=== PATIENT | female | born 1965 | race Caucasian/White ===

== ENCOUNTER 2020-12-16 08:36 | Emergency (ER) | payer SELFPAY ==
[~2020-12-16 08:36] MED LIST: CEFTIN500 MG PO; NEURONTIN800 MG PO; XANAX1 MG PO
[2020-12-16 09:52] LABS: RED BLOOD COUNT 3.52 M/UL (4.00-5.10); WHITE BLOOD COUNT 8.7 K/UL (4.5-11.0)
[2020-12-16 10:12] LABS: BUN/CREATININE RATIO 25 (0-10)
[2020-12-16] MEDS ORDERED: CORTIZONE-1057 GM TP (11:08)
== END 2020-12-16 11:17 | disposition home or self-care (01) ==
LOC: ER1 08:36
PROVIDERS: Student in an Organized Health Care Education/Training Program
DX: L29.9 Pruritus, unspecified (principal); F17.210 Nicotine dependence, cigarettes, uncomplicated; Z86.19 Personal history of other infectious and parasitic diseases; Z90.710 Acquired absence of both cervix and uterus
CPT/HCPCS: 80053; 85025; 99283

== ENCOUNTER 2021-02-21 09:18 | Emergency (ER) | payer OTHER ==
[~2021-02-21 09:18] MED LIST changes: +CORTIZONE-1057 GM TP
[2021-02-21 11:27] LABS: HEMOGLOBIN 11.6 gm/dl (12.3-15.3); RED BLOOD COUNT 3.74 M/UL (4.00-5.10); WHITE BLOOD COUNT 5.9 K/UL (4.5-11.0)
[2021-02-21 11:55] LABS: BUN/CREATININE RATIO 29 (0-10)
[2021-02-21] MEDS ORDERED: SKLICE117 GM TP (12:08)
[2021-02-21] MEDS ORDERED: STROMECTOL3 MG PO (12:19)
== END 2021-02-21 12:23 | disposition home or self-care (01) ==
LOC: ER1 09:18
PROVIDERS: Physician Assistant
DX: R10.9 Unspecified abdominal pain (principal); Z90.710 Acquired absence of both cervix and uterus; Z90.89 Acquired absence of other organs; Z88.1 Allergy status to other antibiotic agents; Z79.899 Other long term (current) drug therapy; Z87.891 Personal history of nicotine dependence
CPT/HCPCS: 80053; 81001; 85025; 87086; 96372; 99284; J1885

== ENCOUNTER 2021-03-16 07:10 | Emergency (ER) | payer OTHER ==
[~2021-03-16 07:10] MED LIST changes: +SKLICE117 GM TP; +STROMECTOL3 MG PO
[2021-03-16 08:15] LABS: HEMOGLOBIN 12.6 gm/dl (12.3-15.3); RED BLOOD COUNT 3.99 M/UL (4.00-5.10); WHITE BLOOD COUNT 4.3 K/UL (4.5-11.0)
[2021-03-16 08:44] LABS: BUN/CREATININE RATIO 26 (0-10)
[2021-03-16] MEDS ORDERED: SALINE SENSITI360 ML EYEBOTH (12:43)
[2021-03-16] MEDS ORDERED: CORTISONE28 G2 TP (12:43)
== END 2021-03-16 12:57 | disposition home or self-care (01) ==
LOC: ER1 07:10
PROVIDERS: Emergency Medicine
DX: R07.9 Chest pain, unspecified (principal); R21 Rash and other nonspecific skin eruption; M25.512 Pain in left shoulder; Z85.51 Personal history of malignant neoplasm of bladder
CPT/HCPCS: 71045; 80053; 81001; 82550; 82553; 83690; 84484; 85025; 93005; 99285

== ENCOUNTER 2021-03-18 18:53 | Emergency (ER) | payer OTHER ==
[~2021-03-18 18:53] MED LIST changes: +CORTISONE28 G2 TP; +SALINE SENSITI360 ML EYEBOTH
[2021-03-18] MEDS ORDERED: NORFLEX 100 MG100 MG PO (19:21)
[2021-03-18] MEDS ORDERED: Voltaren Gel 1 % TOP (19:21)
[2021-03-19] MEDS ORDERED: ELIMITE 5% CREA60 GM TOP (01:38)
[2021-03-19] MEDS ORDERED: MOBIC15 MG PO (01:38)
[2021-03-19] MEDS ORDERED: STROMECTOL3 MG PO (01:51)
== END 2021-03-19 02:00 | disposition home or self-care (01) ==
LOC: ER1 18:53
DX: S30.0XXA Contusion of lower back and pelvis, initial encounter (principal); M16.11 Unilateral primary osteoarthritis, right hip; M25.551 Pain in right hip; B20 Human immunodeficiency virus [HIV] disease; F17.210 Nicotine dependence, cigarettes, uncomplicated; Z90.710 Acquired absence of both cervix and uterus; Z88.1 Allergy status to other antibiotic agents; W22.8XXA Striking against or struck by other objects, initial encounter
CPT/HCPCS: 72100; 72192; 72220; 73030; 73502; 99284

== ENCOUNTER 2021-04-08 20:30 | Emergency (ER) | payer OTHER ==
[~2021-04-08 20:30] MED LIST changes: +ELIMITE 5% CREA60 GM TOP; +MOBIC15 MG PO; +NORFLEX 100 MG100 MG PO; +Voltaren Gel 1 % TOP
[2021-04-08 21:24] LABS: RED BLOOD COUNT 3.79 M/UL (4.00-5.10); WHITE BLOOD COUNT 5.3 K/UL (4.5-11.0)
[2021-04-08 21:36] LABS: BUN/CREATININE RATIO 25 (0-10)
[2021-04-09] MEDS ORDERED: ZOFRAN ODT 4 MG4 MG PO (06:58)
[2021-04-09] MEDS ORDERED: IVERMECTIN3 MG PO (10:12)
[2021-04-09] MEDS ORDERED: ELIMITE 5% CREA60 GM TOP (10:12)
== END 2021-04-09 07:18 | disposition home or self-care (01) ==
LOC: ER1 20:30
PROVIDERS: Physician Assistant
DX: R11.2 Nausea with vomiting, unspecified (principal); Z79.1 Long term (current) use of non-steroidal anti-inflammatories (NSAID); F17.200 Nicotine dependence, unspecified, uncomplicated; Z79.899 Other long term (current) drug therapy
CPT/HCPCS: 80053; 81001; 82150; 83690; 85025; 99284

== ENCOUNTER 2021-04-09 09:22 | Emergency (ER) | payer OTHER ==
[~2021-04-09 09:22] MED LIST changes: +ZOFRAN ODT 4 MG4 MG PO
[2021-04-09] MEDS ORDERED: IVERMECTIN3 MG PO (10:12)
[2021-04-09] MEDS ORDERED: ELIMITE 5% CREA60 GM TOP (10:12)
== END 2021-04-09 10:53 | disposition home or self-care (01) ==
LOC: ER1 09:22
DX: B86 Scabies (principal); Z86.19 Personal history of other infectious and parasitic diseases; Z90.89 Acquired absence of other organs; Z90.710 Acquired absence of both cervix and uterus; F17.200 Nicotine dependence, unspecified, uncomplicated; Z79.899 Other long term (current) drug therapy
CPT/HCPCS: 99282

== ENCOUNTER 2021-05-13 16:38 | Emergency (ER) | payer OTHER ==
[~2021-05-13 16:38] MED LIST changes: +IVERMECTIN3 MG PO
[2021-05-13 18:53] LABS: HEMOGLOBIN 11.9 gm/dl (12.3-15.3); RED BLOOD COUNT 3.76 M/UL (4.00-5.10); WHITE BLOOD COUNT 4.9 K/UL (4.5-11.0)
[2021-05-13 19:18] LABS: BUN/CREATININE RATIO 32 (0-10)
[2021-05-13] MEDS ORDERED: BACTRIM DS TAB1 EACH PO (20:47)
== END 2021-05-13 21:00 | disposition home or self-care (01) ==
LOC: ER1 16:38
PROVIDERS: Physician Assistant Medical
DX: N39.0 Urinary tract infection, site not specified (principal); F17.200 Nicotine dependence, unspecified, uncomplicated; Z90.89 Acquired absence of other organs; Z90.710 Acquired absence of both cervix and uterus; Z88.1 Allergy status to other antibiotic agents
CPT/HCPCS: 80053; 81001; 85025; 99284

== ENCOUNTER 2021-05-31 00:26 | Emergency (ER) | payer OTHER ==
[~2021-05-31 00:26] MED LIST changes: +BACTRIM DS TAB1 EACH PO
[2021-05-31 02:29] LABS: HEMOGLOBIN 11.6 gm/dl (12.3-15.3); RED BLOOD COUNT 3.63 M/UL (4.00-5.10); WHITE BLOOD COUNT 4.3 K/UL (4.5-11.0)
[2021-05-31] MEDS ORDERED: ZOFRAN4 MG PO (04:49)
[2021-05-31] MEDS ORDERED: OMNICEF 300 MG300 MG PO (05:03)
== END 2021-05-31 05:30 | disposition home or self-care (01) ==
LOC: ER1 00:26
PROVIDERS: Physician Assistant Medical
DX: R10.30 Lower abdominal pain, unspecified (principal); R31.9 Hematuria, unspecified; R11.2 Nausea with vomiting, unspecified; F17.210 Nicotine dependence, cigarettes, uncomplicated; Z90.49 Acquired absence of other specified parts of digestive tract; Z90.710 Acquired absence of both cervix and uterus; Z79.899 Other long term (current) drug therapy; Z88.1 Allergy status to other antibiotic agents
CPT/HCPCS: 80053; 81001; 85025; 96372; 99284; J0696; J1885

== ENCOUNTER 2021-06-05 15:43 | Emergency (ER) | payer OTHER ==
[~2021-06-05 15:43] MED LIST changes: +OMNICEF 300 MG300 MG PO; +ZOFRAN4 MG PO
== END 2021-06-05 20:00 | disposition home or self-care (01) ==
LOC: ER1 15:43
DX: L29.9 Pruritus, unspecified (principal); F41.9 Anxiety disorder, unspecified; R30.0 Dysuria; F17.200 Nicotine dependence, unspecified, uncomplicated
CPT/HCPCS: 81001; 99283

== ENCOUNTER 2021-06-11 22:47 | Emergency (ER) | payer OTHER ==
[2021-06-12 00:15] LABS: HEMOGLOBIN 12.6 gm/dl (12.3-15.3); RED BLOOD COUNT 4.04 M/UL (4.00-5.10); WHITE BLOOD COUNT 3.6 K/UL (4.5-11.0)
[2021-06-12] MEDS ORDERED: ZOFRAN ODT 4 MG4 MG PO (04:10)
== END 2021-06-12 05:10 | disposition home or self-care (01) ==
LOC: ER1 22:47
PROVIDERS: Physician Assistant
DX: R31.9 Hematuria, unspecified (principal); R30.0 Dysuria; R10.9 Unspecified abdominal pain; F17.210 Nicotine dependence, cigarettes, uncomplicated; Z88.1 Allergy status to other antibiotic agents
CPT/HCPCS: 80053; 81001; 85025; 87086; 96372; 99284; J0696; Q9967

== ENCOUNTER 2021-10-12 22:01 | Emergency (ER) | payer OTHER ==
[2021-10-13] MEDS ORDERED: OMNICEF 300 MG300 MG PO (03:14)
[2021-10-13 05:39] LABS: HEMOGLOBIN 11.3 gm/dl (12.3-15.3); RED BLOOD COUNT 3.5 M/UL (4.00-5.10); WHITE BLOOD COUNT 6.3 K/UL (4.5-11.0)
[2021-10-13 09:01] LABS: BUN/CREATININE RATIO 40 (0-10)
[2021-10-13] MEDS ORDERED: IBUPROFEN600 MG PO (12:26)
== END 2021-10-13 03:26 | disposition home or self-care (01) ==
LOC: ER1 22:01
PROVIDERS: Physician Assistant
DX: N39.0 Urinary tract infection, site not specified (principal); K59.00 Constipation, unspecified; F17.200 Nicotine dependence, unspecified, uncomplicated; Z88.1 Allergy status to other antibiotic agents; Z87.442 Personal history of urinary calculi
CPT/HCPCS: 80053; 81001; 83605; 83690; 85025; 87077; 87086; 87186; 99284

== ENCOUNTER 2021-10-13 11:45 | Emergency (ER) | payer OTHER ==
[2021-10-13] MEDS ORDERED: IBUPROFEN600 MG PO (12:26)
== END 2021-10-13 12:58 | disposition home or self-care (01) ==
LOC: ER1 11:45
DX: N39.0 Urinary tract infection, site not specified (principal); F17.200 Nicotine dependence, unspecified, uncomplicated; Z88.8 Allergy status to other drugs, medicaments and biological substances; Z90.710 Acquired absence of both cervix and uterus
CPT/HCPCS: 96372; 99283; J0696

== ENCOUNTER 2021-11-15 18:54 | Emergency (ER) | payer OTHER ==
[~2021-11-15 18:54] MED LIST changes: +IBUPROFEN600 MG PO
[2021-11-15 21:18] LABS: HEMOGLOBIN 12.5 gm/dl (12.3-15.3); RED BLOOD COUNT 3.86 M/UL (4.00-5.10); WHITE BLOOD COUNT 5.8 K/UL (4.5-11.0)
[2021-11-15 21:46] LABS: BUN/CREATININE RATIO 28 (0-10)
[2021-11-15] MEDS ORDERED: FLOMAX 0.4 MG0.4 MG PO (22:02)
== END 2021-11-15 22:10 | disposition home or self-care (01) ==
LOC: ER1 18:54
PROVIDERS: Nurse Practitioner
DX: N20.0 Calculus of kidney (principal); Z90.710 Acquired absence of both cervix and uterus; Z87.442 Personal history of urinary calculi
CPT/HCPCS: 80053; 81001; 85025; 99284

== ENCOUNTER 2021-12-23 22:34 | Emergency (ER) | payer OTHER ==
[~2021-12-23 22:34] MED LIST changes: +FLOMAX 0.4 MG0.4 MG PO
[2021-12-24 02:41] LABS: HEMOGLOBIN 12.3 gm/dl (12.3-15.3); RED BLOOD COUNT 3.91 M/UL (4.00-5.10); WHITE BLOOD COUNT 4.5 K/UL (4.5-11.0)
[2021-12-24 03:38] LABS: ADENOVIRUS F 40/41 Not Detected (Negative); ASTROVIRUS Not Detected (Negative); CAMPYLOBACTER Not Detected (Negative); CRYPTOSPORIDIUM Not Detected (Negative); E.COLI 0157 Not Detected (Negative); ENTAMOEBA HISTOLYTICA Not Detected (Negative); ENTEROAGGREGATIVE E.COLI (EAEC Not Detected (Negative); ENTEROPATHOGENIC E.COLI (EPEC) Not Detected (Negative); ENTEROTOXIGENIC E.COLI (ETEC) Not Detected (Negative); GIARDIA LAMBLIA Not Detected (Negative); NOROVIRUS GI/GII Not Detected (Negative); PLESIOMONAS SHIGELLOIDES Not Detected (Negative); ROTOVIRUS A Not Detected (Negative); SALMONELLA Not Detected (Negative); SAPOVIRUS Not Detected (Negative); SHIG/ENTEROINVAS.ECOLI (EIEC) Not Detected (Negative); SHIGA-LIK TOX.PRO.E.COLI (STEC Not Detected (Negative); VIBRIO Not Detected (Negative); VIBRIO CHOLERAE Not Detected (Negative); YERSINIA ENTEROCOLITICA Not Detected (Negative)
[2021-12-24 05:36] LABS: BUN/CREATININE RATIO 36 (0-10)
[2021-12-24] MEDS ORDERED: OMNICEF 300 MG300 MG PO (06:01)
[2021-12-24] MEDS ORDERED: BENTYL 20MG TAB20 MG PO (06:01)
[2021-12-24] MEDS ORDERED: ZOFRAN ODT 4 MG4 MG PO (06:01)
[2021-12-24 10:14] LABS: CLOSTRIDIUM DIFFICILE TOX A/B DETECTED (Negative)
== END 2021-12-24 06:25 | disposition home or self-care (01) ==
LOC: ER1 22:34
PROVIDERS: Physician Assistant
DX: U07.1 COVID-19 (principal); F17.210 Nicotine dependence, cigarettes, uncomplicated; R10.84 Generalized abdominal pain; R11.2 Nausea with vomiting, unspecified; R19.7 Diarrhea, unspecified
CPT/HCPCS: 0240U; 80053; 81001; 82150; 82550; 82553; 83690; 84484; 85025; 85652; 86140; 87507; 99284

== ENCOUNTER 2022-04-23 16:41 | Emergency (ER) | payer OTHER ==
[~2022-04-23 16:41] MED LIST changes: +BENTYL 20MG TAB20 MG PO
[2022-04-23] MEDS ORDERED: TORADOL 10 MG T10 MG PO (18:47)
== END 2022-04-23 19:26 | disposition home or self-care (01) ==
LOC: ER1 16:41
DX: M16.11 Unilateral primary osteoarthritis, right hip (principal); M91.11 Juvenile osteochondrosis of head of femur [Legg-Calve-Perthes], right leg; F17.210 Nicotine dependence, cigarettes, uncomplicated
CPT/HCPCS: 73502; 96372; 99283; J1885

== ENCOUNTER 2022-05-12 20:01 | Emergency (ER) | payer OTHER ==
[~2022-05-12 20:01] MED LIST changes: +TORADOL 10 MG T10 MG PO
[2022-05-13 01:48] LABS: HEMOGLOBIN 13.6 gm/dl (12.3-15.3); RED BLOOD COUNT 4.27 M/UL (4.00-5.10); WHITE BLOOD COUNT 6.1 K/UL (4.5-11.0)
[2022-05-13 02:08] LABS: BUN/CREATININE RATIO 28 (0-10)
[2022-05-13] MEDS ORDERED: HYDROCODON-ACE1 EAC4 PO (04:26)
== END 2022-05-13 04:40 | disposition home or self-care (01) ==
LOC: ER1 20:01
PROVIDERS: Physician Assistant
DX: R10.9 Unspecified abdominal pain (principal); R31.9 Hematuria, unspecified; Z90.89 Acquired absence of other organs; Z90.710 Acquired absence of both cervix and uterus
CPT/HCPCS: 80053; 81001; 83690; 85025; 96374; 96375; 99284; J1885; J2270

== ENCOUNTER 2022-07-09 22:43 | Emergency (ER) | payer OTHER ==
[~2022-07-09 22:43] MED LIST changes: +HYDROCODON-ACE1 EAC4 PO
[2022-07-10 00:35] LABS: HEMOGLOBIN 13.1 gm/dl (12.3-15.3); RED BLOOD COUNT 4.13 M/UL (4.00-5.10); WHITE BLOOD COUNT 5.7 K/UL (4.5-11.0)
[2022-07-10 00:57] LABS: BUN/CREATININE RATIO 30 (0-10)
[2022-07-10] MEDS ORDERED: ZOFRAN 4 MG TAB4 MG PO (01:31)
[2022-07-10] MEDS ORDERED: HYDROCODON-ACE1 EAC4 PO (01:32)
== END 2022-07-10 02:04 | disposition home or self-care (01) ==
LOC: ER1 22:43
PROVIDERS: Emergency Medicine
DX: N23 Unspecified renal colic (principal); Z87.442 Personal history of urinary calculi; F17.200 Nicotine dependence, unspecified, uncomplicated; Z85.51 Personal history of malignant neoplasm of bladder
CPT/HCPCS: 80053; 81001; 83690; 85025; 96374; 96375; 99284; J1885; J2270; J2405